=== PATIENT | male | born 1960 | race Caucasian/White ===

== ENCOUNTER 2019-09-30 15:19 | Emergency (ER) | payer SELFPAY ==
[~2019-09-30] VITALS: Ht 175.3 cm; Wt 81.8 kg
[2019-09-30] MEDS ORDERED: ONDANSETRON PF 4 MG/2 ML VIAL. IVP ONE (16:00)
[2019-09-30] MEDS ORDERED: fentaNYL PF VIAL 100 MCG/2 ML VIAL IVP ONE (16:00)
--- NOTE | 2019-09-30 16:11 | RAD ---
Left foot 3 views. HISTORY: Stepped on nail 3 views were taken of the left foot. There is mild arthritis at the interphalangeal joint of the great toe at the first metatarsal phalangeal joint with mild erosive changes. There is no fracture. There is no opaque foreign body. There is a plate on the fibula with old healed fibular fracture. IMPRESSION: 1. 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 2. No fracture or other acute osseous abnormality. 3. No opaque foreign body noted. Electronically signed by: Bennett Cooper MD (09/30/2019 4:09 PM) [facility]
--- NOTE | 2019-09-30 16:13 | RAD ---
Right femur 2 views portable 09/30/2019 Reason for exam: Pain after falling. No fracture or dislocation is seen. No significant arthritic change is evident and there is no apparent foreign body. IMPRESSION: No acute bony abnormality. Electronically signed by: Luis Carlos Zapien Jr., MD (09/30/2019 4:09 PM) [facility]
[2019-09-30] MEDS ORDERED: PIPERACILLIN/TAZOBACTAM 3.375 GM in IV NORMAL SALINE 50ML 50 ML IV ONE (16:45)
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
[2019-09-30] MEDS ORDERED: AMOX1TAB11 PO (16:54)
[2019-09-30] MEDS ORDERED: NAPR-682 PO (16:54)
[2019-09-30 17:03] VITALS: BP 137/89
== END 2019-09-30 17:15 | disposition home or self-care (01) ==
LOC: ER 15:19
DX: S91.332A Puncture wound without foreign body, left foot, initial encounter (principal); M79.672 Pain in left foot; M79.651 Pain in right thigh; F17.200 Nicotine dependence, unspecified, uncomplicated; Z90.89 Acquired absence of other organs; Z98.890 Other specified postprocedural states; W20.8XXA Other cause of strike by thrown, projected or falling object, initial encounter; Y93.89 Activity, other specified; Y92.89 Other specified places as the place of occurrence of the external cause; Y99.8 Other external cause status
CPT/HCPCS: 73552; 73630; 96365; 96375; 99285; J2405; J2543; J3010